=== PATIENT | male | born 1970 | race Two or more races ===

== ENCOUNTER 2020-05-19 13:21 | Inpatient (IN) | payer MEDICAID, OTHER ==
[~2020-05-19] VITALS: Ht 172.7 cm; Wt 77.5 kg
[2020-05-19 14:04] LABS: Basophils # (auto) 0 10 ^3/uL (0-0.2); Basophils % (auto) 0.2 % (0.0-2.0); Eosinophils # (auto) 0 10 ^3/uL (0-0.8); Eosinophils % (auto) 0.1 % (0.0-7.0); Hematocrit 42.3 % (41.0-53.0); Lymphocytes # (auto) 0.7 10 ^3/uL (0.4-5.4); Lymphocytes % (auto) 9.6 % (10.0-50.0); Mean Corpuscular Hemoglobin 33.7 pg (28.0-32.0); Mean Corpuscular Hgb Conc. 35.4 g/dL (32.0-36.0); Mean Corpuscular Volume 95.2 fL (80.0-100.0); Monocytes # (auto) 0.2 10 ^3/uL (0-1.3); Monocytes % (auto) 2.6 % (0.0-12.0); Neutrophils # (auto) 6.1 10 ^3/uL (1.6-8.6); Neutrophils % (auto) 87.5 % (37.0-80.0); Nucleated Red Blood Cells % 0.1 %; Platelet Count (auto) 258 10^3/uL (140-450); Red Blood Cells 4.44 10^6/uL (4.5-5.90); Red Cell Distribution Width 12.5 % (11.8-14.3); White Blood Cell 6.9 10^3/uL (4.4-10.8)
[2020-05-19 14:13] LABS: Albumin 2.8 g/dL (3.4-5.0); BUN/Creatinine Ratio 15.2; Calcium 8.1 mg/dL (8.5-10.1); Potassium 3.6 mmol/L (3.5-5.1)
[2020-05-19 14:18] LABS: Bilirubin, Total 0.7 mg/dL (0.2-1.0); Total Protein 7.4 g/dL (6.4-8.2)
[2020-05-19] MEDS ORDERED: AZITHROMYCIN 500MG/ 250ML 250 ML IV ONE (14:45)
[2020-05-19 15:02] LABS: INR 1.05 (0.9-1.15); Partial Thromboplastin Time 26.7 sec (23.0-31.2)
[2020-05-19] MEDS ORDERED: DexAMETHasone 4 MG TAB PO ONE (16:45)
[2020-05-19] MEDS ORDERED: REMDESIVIR PER PHARMACY 0 ML IV SCH (19:00)
[2020-05-19] MEDS ORDERED: NITROGLYCERIN 0.4 MG SL TAB SL PRN (19:00)
[2020-05-19] MEDS ORDERED: ACETAMINOPHEN 500 MG TAB PO PRN (19:00)
[2020-05-19] MEDS ORDERED: MORPHINE SULF INJ 2 MG/ML SYRINGE 1ML IV PRN ×2 (19:00)
[2020-05-19] MEDS ORDERED: ONDANSETRON HCL 4 MG/2 ML VIAL IV PRN (19:00)
[2020-05-19] MEDS ORDERED: HYDROcodone-ACET 5/325MG TAB PO PRN (19:00)
[2020-05-19 21:24] LABS: CRP High Sensitivity 12.9 mg/dL (< 0.3)
[2020-05-19] MEDS: ENOXAPARIN SOD 40 MG/0.4 ML SYRINGE SC SCH (22:00)
[2020-05-20] VITALS (7 sets, daily range): BP systolic 120–128; BP diastolic 65–82
[2020-05-20 07:14] LABS: BUN/Creatinine Ratio 17.9; Basophils # (auto) 0 10 ^3/uL (0-0.2); Calcium 8.7 mg/dL (8.5-10.1); Eosinophils # (auto) 0 10 ^3/uL (0-0.8); Hematocrit 42.2 % (41.0-53.0); Hemoglobin 14.6 g/dL (13.5-17.5); Lymphocytes # (auto) 0.4 10 ^3/uL (0.4-5.4); Mean Corpuscular Hemoglobin 33.4 pg (28.0-32.0); Mean Corpuscular Hgb Conc. 34.6 g/dL (32.0-36.0); Mean Corpuscular Volume 96.5 fL (80.0-100.0); Monocytes # (auto) 0.1 10 ^3/uL (0-1.3); Monocytes % (auto) 3.5 % (0.0-12.0); Neutrophils # (auto) 2.5 10 ^3/uL (1.6-8.6); Neutrophils % (auto) 84.5 % (37.0-80.0); Nucleated Red Blood Cells % 0.1 %; Platelet Count (auto) 248 10^3/uL (140-450); Red Blood Cells 4.38 10^6/uL (4.5-5.90); Red Cell Distribution Width 12.6 % (11.8-14.3); White Blood Cell 2.9 10^3/uL (4.4-10.8)
[2020-05-20] MEDS: AZITHROMYCIN 500MG/ 250ML 250 ML IV SCH (09:33)
[2020-05-20] MEDS: ZINC SULFATE 220mg CAP or TAB PO SCH (09:33)
[2020-05-20] MEDS: DexAMETHasone SOD PHOS 10MG/1ML VIAL INJ IV SCH (09:33)
[2020-05-20] MEDS: cefTRIAXone 1GM/50ML D5W 50 ML IV SCH (09:33)
[2020-05-20] MEDS: FAMOTIDINE 20 MG TAB PO SCH (09:34)
[2020-05-20] MEDS: ASCORBIC ACID 1,000 MG TAB PO SCH (09:34)
[2020-05-20] MEDS: ENOXAPARIN SOD 40 MG/0.4 ML SYRINGE SC SCH ×2 (09:35→22:01)
[2020-05-20] MEDS: CHOLECALCIFEROL (VITD3) 2,000 UNIT CAP PO SCH (09:35)
[2020-05-20] MEDS: BUDESONIDE (INHALATION) 180 MCG IH IN SCH ×3 (10:00→23:06)
[2020-05-20] MEDS ORDERED: REMDESIVIR 200 MG in NS 210ml LOADING DOSE ADULT IV ONE (15:00)
[2020-05-20 16:36] LABS: Urine Bacteria NONE SEEN /hpf (None Seen); Urine Blood Negative /uL (Negative); Urine Mucus FEW (None Seen); Urine Specific Gravity 1.027 (1.001-1.035); Urine WBC 1 /hpf (0 - 3)
[2020-05-20] MEDS: PROMETHAZINE W/CODEINE 5 ML ORAL SYRUP PO PRN ×2 (16:36→22:30)
[2020-05-21 05:00] VITALS: BP 120/78
[2020-05-21] MEDS: PROMETHAZINE W/CODEINE 5 ML ORAL SYRUP PO PRN ×3 (06:19→18:58)
[2020-05-21 08:53] VITALS: BP 116/74
[2020-05-21 09:29] LABS: Calcium 8.5 mg/dL (8.5-10.1); Potassium 3.7 mmol/L (3.5-5.1)
[2020-05-21] MEDS: cefTRIAXone 1GM/50ML D5W 50 ML IV SCH (09:34)
[2020-05-21 09:35] LABS: Albumin 2.3 g/dL (3.4-5.0); Bilirubin, Total 0.4 mg/dL (0.2-1.0)
[2020-05-21] MEDS: ENOXAPARIN SOD 40 MG/0.4 ML SYRINGE SC SCH ×2 (09:41→22:08)
[2020-05-21] MEDS: DexAMETHasone SOD PHOS 10MG/1ML VIAL INJ IV SCH (09:42)
[2020-05-21] MEDS: ZINC SULFATE 220mg CAP or TAB PO SCH (09:49)
[2020-05-21] MEDS: FAMOTIDINE 20 MG TAB PO SCH (09:50)
[2020-05-21] MEDS: ASCORBIC ACID 1,000 MG TAB PO SCH (09:50)
[2020-05-21] MEDS: CHOLECALCIFEROL (VITD3) 2,000 UNIT CAP PO SCH (09:51)
[2020-05-21] MEDS: BUDESONIDE (INHALATION) 180 MCG IH IN SCH ×2 (10:00→20:57)
[2020-05-21] MEDS: AZITHROMYCIN 500MG/ 250ML 250 ML IV SCH (10:00)
[2020-05-21 12:51] VITALS: BP 115/69
[2020-05-21] MEDS: REMDESIVIR 100 MG in SODIUM CHL 0.9% 250 ML IV SCH (15:00)
[2020-05-21 17:13] VITALS: BP 114/74
[2020-05-21 22:00] VITALS: BP 125/75
[2020-05-21] MEDS: ALBUTEROL SULF HFA 90MCG INH 200DOSE IN PRN (22:35)
[2020-05-22 05:00] VITALS: BP 123/73
[2020-05-22] MEDS: BUDESONIDE (INHALATION) 180 MCG IH IN SCH ×2 (07:05→20:39)
[2020-05-22 09:00] VITALS: BP 96/58
[2020-05-22] MEDS: AZITHROMYCIN 500MG/ 250ML 250 ML IV SCH (09:56)
[2020-05-22] MEDS: cefTRIAXone 1GM/50ML D5W 50 ML IV SCH (09:57)
[2020-05-22] MEDS: ZINC SULFATE 220mg CAP or TAB PO SCH (09:58)
[2020-05-22] MEDS: ASCORBIC ACID 1,000 MG TAB PO SCH (09:59)
[2020-05-22] MEDS: FAMOTIDINE 20 MG TAB PO SCH (09:59)
[2020-05-22] MEDS: CHOLECALCIFEROL (VITD3) 2,000 UNIT CAP PO SCH (09:59)
[2020-05-22] MEDS: DexAMETHasone SOD PHOS 10MG/1ML VIAL INJ IV SCH (11:54)
[2020-05-22] MEDS: ENOXAPARIN SOD 40 MG/0.4 ML SYRINGE SC SCH ×2 (11:54→21:10)
[2020-05-22 13:04] VITALS: BP 120/70
[2020-05-22 13:11] LABS: Potassium 3.9 mmol/L (3.5-5.1)
[2020-05-22 13:19] LABS: Albumin 2.3 g/dL (3.4-5.0); Bilirubin, Total 0.4 mg/dL (0.2-1.0); Calcium 8.4 mg/dL (8.5-10.1); Total Protein 6.5 g/dL (6.4-8.2)
[2020-05-22] MEDS: REMDESIVIR 100 MG in SODIUM CHL 0.9% 250 ML IV SCH (16:04)
[2020-05-22 17:08] VITALS: BP 127/76
[2020-05-22] MEDS ORDERED: POTASSIUM CHL 20 Meq TABLET PO ONE (17:30)
[2020-05-22] MEDS ORDERED: FUROSEMIDE 20 MG/2 ML VIAL IV ONE (17:30)
[2020-05-22] MEDS: ALBUTEROL SULF HFA 90MCG INH 200DOSE IN PRN (20:39)
[2020-05-22 22:00] VITALS: BP 107/69
[2020-05-23] VITALS (11 sets, daily range): BP systolic 106–128; BP diastolic 65–78
[2020-05-23] MEDS: ALBUTEROL SULF HFA 90MCG INH 200DOSE IN PRN (07:05)
[2020-05-23 07:36] LABS: Albumin 2.5 g/dL (3.4-5.0); Calcium 8.8 mg/dL (8.5-10.1)
[2020-05-23 07:40] LABS: BUN/Creatinine Ratio 27.9; Bilirubin, Total 0.5 mg/dL (0.2-1.0); Potassium 4.3 mmol/L (3.5-5.1); Total Protein 6.5 g/dL (6.4-8.2)
[2020-05-23] MEDS: cefTRIAXone 1GM/50ML D5W 50 ML IV SCH (09:24)
[2020-05-23] MEDS: FUROSEMIDE 20 MG/2 ML VIAL IV SCH (09:25)
[2020-05-23] MEDS: ASCORBIC ACID 1,000 MG TAB PO SCH (09:25)
[2020-05-23] MEDS: DexAMETHasone SOD PHOS 10MG/1ML VIAL INJ IV SCH (09:25)
[2020-05-23] MEDS: ZINC SULFATE 220mg CAP or TAB PO SCH (09:25)
[2020-05-23] MEDS: POTASSIUM CHL 20 Meq TABLET PO SCH (09:25)
[2020-05-23] MEDS: FAMOTIDINE 20 MG TAB PO SCH (09:25)
[2020-05-23] MEDS: CHOLECALCIFEROL (VITD3) 2,000 UNIT CAP PO SCH (09:25)
[2020-05-23] MEDS: ENOXAPARIN SOD 40 MG/0.4 ML SYRINGE SC SCH ×2 (09:26→21:58)
[2020-05-23] MEDS: AZITHROMYCIN 500MG/ 250ML 250 ML IV SCH (09:35)
[2020-05-23] MEDS: REMDESIVIR 100 MG in SODIUM CHL 0.9% 250 ML IV SCH (15:45)
[2020-05-23] MEDS: BUDESONIDE (INHALATION) 180 MCG IH IN SCH ×2 (19:10→19:15)
[2020-05-24] VITALS (7 sets, daily range): BP systolic 104–127; BP diastolic 61–85
[2020-05-24] MEDS: PROMETHAZINE W/CODEINE 5 ML ORAL SYRUP PO PRN (01:36)
[2020-05-24] MEDS: ALBUTEROL SULF HFA 90MCG INH 200DOSE IN PRN ×2 (02:21→20:51)
[2020-05-24 07:06] LABS: Potassium 4.3 mmol/L (3.5-5.1)
[2020-05-24 07:16] LABS: Albumin 2.4 g/dL (3.4-5.0); BUN/Creatinine Ratio 24.7; Bilirubin, Total 0.4 mg/dL (0.2-1.0); Calcium 8.4 mg/dL (8.5-10.1); Total Protein 6.5 g/dL (6.4-8.2)
[2020-05-24] MEDS: cefTRIAXone 1GM/50ML D5W 50 ML IV SCH (08:57)
[2020-05-24] MEDS: AZITHROMYCIN 500MG/ 250ML 250 ML IV SCH (09:47)
[2020-05-24] MEDS: POTASSIUM CHL 20 Meq TABLET PO SCH (09:47)
[2020-05-24] MEDS: ASCORBIC ACID 1,000 MG TAB PO SCH (09:47)
[2020-05-24] MEDS: FUROSEMIDE 20 MG/2 ML VIAL IV SCH (09:48)
[2020-05-24] MEDS: DexAMETHasone SOD PHOS 10MG/1ML VIAL INJ IV SCH (09:48)
[2020-05-24] MEDS: ENOXAPARIN SOD 40 MG/0.4 ML SYRINGE SC SCH ×2 (09:48→21:18)
[2020-05-24] MEDS: FAMOTIDINE 20 MG TAB PO SCH (09:49)
[2020-05-24] MEDS: CHOLECALCIFEROL (VITD3) 2,000 UNIT CAP PO SCH (09:49)
[2020-05-24] MEDS: ZINC SULFATE 220mg CAP or TAB PO SCH (09:51)
[2020-05-24] MEDS: BUDESONIDE (INHALATION) 180 MCG IH IN SCH ×2 (10:00→20:51)
[2020-05-24] MEDS: REMDESIVIR 100 MG in SODIUM CHL 0.9% 250 ML IV SCH (15:39)
[2020-05-24] MEDS ORDERED: SALINE 0.65 % NASAL SPRAY 45ML BOTTLE EACHNOSTRI ONE (16:00)
[2020-05-24] MEDS: Ensure HIGH Protein Chocolate 8oz Bottle PO SCH (17:50)
[2020-05-25 05:30] VITALS: BP 114/74
[2020-05-25] MEDS: SALINE 0.65 % NASAL SPRAY 45ML BOTTLE EACHNOSTRI SCH ×4 (06:12→21:42)
[2020-05-25 07:58] LABS: Basophils # (auto) 0 10 ^3/uL (0-0.2); Basophils % (auto) 0.2 % (0.0-2.0); Eosinophils # (auto) 0 10 ^3/uL (0-0.8); Hemoglobin 14.5 g/dL (13.5-17.5); Lymphocytes # (auto) 0.8 10 ^3/uL (0.4-5.4); Lymphocytes % (auto) 11.2 % (10.0-50.0); Mean Corpuscular Hemoglobin 33.6 pg (28.0-32.0); Mean Corpuscular Hgb Conc. 34.5 g/dL (32.0-36.0); Mean Corpuscular Volume 97.5 fL (80.0-100.0); Monocytes # (auto) 0.3 10 ^3/uL (0-1.3); Monocytes % (auto) 4.6 % (0.0-12.0); Neutrophils # (auto) 5.8 10 ^3/uL (1.6-8.6); Platelet Count (auto) 379 10^3/uL (140-450); Red Blood Cells 4.31 10^6/uL (4.5-5.90); Red Cell Distribution Width 12.8 % (11.8-14.3); White Blood Cell 6.9 10^3/uL (4.4-10.8)
[2020-05-25] MEDS: Ensure HIGH Protein Chocolate 8oz Bottle PO SCH ×3 (08:04→18:16)
[2020-05-25 08:11] LABS: Potassium 4.3 mmol/L (3.5-5.1)
[2020-05-25 08:17] LABS: BUN/Creatinine Ratio 34.3; Calcium 8.7 mg/dL (8.5-10.1)
[2020-05-25] MEDS: cefTRIAXone 1GM/50ML D5W 50 ML IV SCH (08:58)
[2020-05-25 09:00] VITALS: BP 107/76
[2020-05-25] MEDS: FAMOTIDINE 20 MG TAB PO SCH (09:36)
[2020-05-25] MEDS: POTASSIUM CHL 20 Meq TABLET PO SCH ×2 (09:36→21:42)
[2020-05-25] MEDS: ASCORBIC ACID 1,000 MG TAB PO SCH (09:37)
[2020-05-25] MEDS: CHOLECALCIFEROL (VITD3) 2,000 UNIT CAP PO SCH (09:37)
[2020-05-25] MEDS: ZINC SULFATE 220mg CAP or TAB PO SCH (09:37)
[2020-05-25] MEDS: ENOXAPARIN SOD 40 MG/0.4 ML SYRINGE SC SCH ×2 (09:37→21:42)
[2020-05-25] MEDS: AZITHROMYCIN 500MG/ 250ML 250 ML IV SCH (09:37)
[2020-05-25] MEDS: DexAMETHasone SOD PHOS 10MG/1ML VIAL INJ IV SCH (09:37)
[2020-05-25] MEDS ORDERED: FUROSEMIDE 40 MG/4 ML VIAL IV SCH (10:00)
[2020-05-25 12:46] VITALS: BP 110/68
[2020-05-25 16:43] VITALS: BP 107/72
[2020-05-25] MEDS: BUDESONIDE (INHALATION) 180 MCG IH IN SCH ×2 (19:10→21:42)
[2020-05-25] MEDS: FUROSEMIDE 40 MG/4 ML VIAL IV SCH (21:42)
[2020-05-26] MEDS: ALBUTEROL SULF HFA 90MCG INH 200DOSE IN PRN ×3 (01:32→19:47)
[2020-05-26] MEDS: SALINE 0.65 % NASAL SPRAY 45ML BOTTLE EACHNOSTRI SCH ×4 (05:14→21:08)
[2020-05-26 05:16] VITALS: BP 101/73
[2020-05-26] MEDS: BUDESONIDE (INHALATION) 180 MCG IH IN SCH ×2 (07:33→19:15)
[2020-05-26 07:42] LABS: Potassium 4.3 mmol/L (3.5-5.1)
[2020-05-26 07:53] LABS: BUN/Creatinine Ratio 35.7
[2020-05-26] MEDS: Ensure HIGH Protein Chocolate 8oz Bottle PO SCH ×3 (08:00→18:00)
[2020-05-26 09:00] VITALS: BP 111/70
[2020-05-26] MEDS: cefTRIAXone 1GM/50ML D5W 50 ML IV SCH (09:35)
[2020-05-26] MEDS: ENOXAPARIN SOD 40 MG/0.4 ML SYRINGE SC SCH ×2 (09:36→21:08)
[2020-05-26] MEDS: DexAMETHasone SOD PHOS 10MG/1ML VIAL INJ IV SCH (09:36)
[2020-05-26] MEDS: FUROSEMIDE 40 MG/4 ML VIAL IV SCH ×2 (09:36→21:32)
[2020-05-26] MEDS: ASCORBIC ACID 1,000 MG TAB PO SCH (09:37)
[2020-05-26] MEDS: POTASSIUM CHL 20 Meq TABLET PO SCH ×2 (09:37→21:08)
[2020-05-26] MEDS: ZINC SULFATE 220mg CAP or TAB PO SCH (09:37)
[2020-05-26] MEDS: CHOLECALCIFEROL (VITD3) 2,000 UNIT CAP PO SCH (09:38)
[2020-05-26] MEDS: FAMOTIDINE 20 MG TAB PO SCH (09:38)
[2020-05-26] MEDS: AZITHROMYCIN 500MG/ 250ML 250 ML IV SCH (10:30)
[2020-05-26 16:00] VITALS: BP 117/76
[2020-05-26] MEDS: DexAMETHasone SOD PHOS 4 MG/1ML SDV INJ IV SCH (21:11)
[2020-05-27] VITALS: BP 116/75
[2020-05-27 05:21] VITALS: BP 117/76
[2020-05-27] MEDS: SALINE 0.65 % NASAL SPRAY 45ML BOTTLE EACHNOSTRI SCH ×4 (05:22→21:45)
[2020-05-27 08:00] VITALS: BP 112/70
[2020-05-27] MEDS: Ensure HIGH Protein Chocolate 8oz Bottle PO SCH ×3 (08:30→17:35)
[2020-05-27] MEDS: cefTRIAXone 1GM/50ML D5W 50 ML IV SCH (08:35)
[2020-05-27] MEDS: DexAMETHasone SOD PHOS 4 MG/1ML SDV INJ IV SCH ×2 (08:35→21:45)
[2020-05-27] MEDS: FUROSEMIDE 40 MG/4 ML VIAL IV SCH ×2 (08:36→21:47)
[2020-05-27] MEDS: ZINC SULFATE 220mg CAP or TAB PO SCH (08:36)
[2020-05-27] MEDS: POTASSIUM CHL 20 Meq TABLET PO SCH ×2 (08:37→21:45)
[2020-05-27] MEDS: ASCORBIC ACID 1,000 MG TAB PO SCH (08:37)
[2020-05-27] MEDS: CHOLECALCIFEROL (VITD3) 2,000 UNIT CAP PO SCH (08:37)
[2020-05-27] MEDS: ENOXAPARIN SOD 40 MG/0.4 ML SYRINGE SC SCH ×2 (08:38→21:46)
[2020-05-27] MEDS: FAMOTIDINE 20 MG TAB PO SCH (08:38)
[2020-05-27] MEDS: ALBUTEROL SULF HFA 90MCG INH 200DOSE IN PRN (09:52)
[2020-05-27] MEDS: BUDESONIDE (INHALATION) 180 MCG IH IN SCH ×2 (09:52→22:21)
[2020-05-27] MEDS: AZITHROMYCIN 500MG/ 250ML 250 ML IV SCH (10:19)
[2020-05-27 16:00] VITALS: BP 112/64
[2020-05-27 22:00] VITALS: BP 126/81
[2020-05-28] MEDS: SALINE 0.65 % NASAL SPRAY 45ML BOTTLE EACHNOSTRI SCH ×4 (05:41→22:00)
[2020-05-28 06:56] LABS: Basophils # (auto) 0 10 ^3/uL (0-0.2); Basophils % (auto) 0.1 % (0.0-2.0); Eosinophils # (auto) 0 10 ^3/uL (0-0.8); Hematocrit 43.2 % (41.0-53.0); Hemoglobin 15.2 g/dL (13.5-17.5); Lymphocytes # (auto) 0.5 10 ^3/uL (0.4-5.4); Lymphocytes % (auto) 6.1 % (10.0-50.0); Mean Corpuscular Hgb Conc. 35.1 g/dL (32.0-36.0); Mean Corpuscular Volume 96.8 fL (80.0-100.0); Monocytes # (auto) 0.2 10 ^3/uL (0-1.3); Monocytes % (auto) 2.4 % (0.0-12.0); Neutrophils # (auto) 8.1 10 ^3/uL (1.6-8.6); Neutrophils % (auto) 91.4 % (37.0-80.0); Platelet Count (auto) 403 10^3/uL (140-450); Red Blood Cells 4.46 10^6/uL (4.5-5.90); Red Cell Distribution Width 12.6 % (11.8-14.3); White Blood Cell 8.9 10^3/uL (4.4-10.8)
[2020-05-28 07:01] LABS: Potassium 4.7 mmol/L (3.5-5.1)
[2020-05-28 07:12] LABS: BUN/Creatinine Ratio 37.9
[2020-05-28 08:00] VITALS: BP 115/77
[2020-05-28] MEDS: Ensure HIGH Protein Chocolate 8oz Bottle PO SCH ×3 (08:00→18:05)
[2020-05-28] MEDS: cefTRIAXone 1GM/50ML D5W 50 ML IV SCH (09:00)
[2020-05-28] MEDS: CHOLECALCIFEROL (VITD3) 2,000 UNIT CAP PO SCH (10:00)
[2020-05-28] MEDS: BUDESONIDE (INHALATION) 180 MCG IH IN SCH ×2 (10:00→22:39)
[2020-05-28] MEDS: AZITHROMYCIN 500MG/ 250ML 250 ML IV SCH (10:00)
[2020-05-28] MEDS: FAMOTIDINE 20 MG TAB PO SCH (10:00)
[2020-05-28] MEDS: POTASSIUM CHL 20 Meq TABLET PO SCH ×2 (10:00→22:10)
[2020-05-28] MEDS: DexAMETHasone SOD PHOS 4 MG/1ML SDV INJ IV SCH ×2 (10:00→22:08)
[2020-05-28] MEDS: FUROSEMIDE 40 MG/4 ML VIAL IV SCH ×2 (10:00→22:09)
[2020-05-28] MEDS: ZINC SULFATE 220mg CAP or TAB PO SCH (10:00)
[2020-05-28] MEDS: ENOXAPARIN SOD 40 MG/0.4 ML SYRINGE SC SCH ×2 (10:00→22:10)
[2020-05-28] MEDS: ASCORBIC ACID 1,000 MG TAB PO SCH (10:00)
[2020-05-28 16:00] VITALS: BP 127/77
[2020-05-28 22:00] VITALS: BP 112/73
[2020-05-29] MEDS: SALINE 0.65 % NASAL SPRAY 45ML BOTTLE EACHNOSTRI SCH ×4 (06:00→22:03)
[2020-05-29 08:00] VITALS: BP 113/75
[2020-05-29] MEDS: Ensure HIGH Protein Chocolate 8oz Bottle PO SCH ×3 (08:00→18:03)
[2020-05-29 08:02] VITALS: BP 119/66
[2020-05-29] MEDS: BUDESONIDE (INHALATION) 180 MCG IH IN SCH ×2 (10:00→21:05)
[2020-05-29] MEDS: DexAMETHasone SOD PHOS 4 MG/1ML SDV INJ IV SCH ×2 (10:06→22:03)
[2020-05-29] MEDS: cefTRIAXone 1GM/50ML D5W 50 ML IV SCH (10:06)
[2020-05-29] MEDS: ZINC SULFATE 220mg CAP or TAB PO SCH (10:07)
[2020-05-29] MEDS: CHOLECALCIFEROL (VITD3) 2,000 UNIT CAP PO SCH (10:07)
[2020-05-29] MEDS: ASCORBIC ACID 1,000 MG TAB PO SCH (10:07)
[2020-05-29] MEDS: POTASSIUM CHL 20 Meq TABLET PO SCH ×2 (10:07→22:03)
[2020-05-29] MEDS: FAMOTIDINE 20 MG TAB PO SCH (10:07)
[2020-05-29] MEDS: AZITHROMYCIN 500MG/ 250ML 250 ML IV SCH (10:07)
[2020-05-29] MEDS: FUROSEMIDE 40 MG/4 ML VIAL IV SCH ×2 (10:08→22:03)
[2020-05-29] MEDS: ENOXAPARIN SOD 40 MG/0.4 ML SYRINGE SC SCH ×2 (10:08→22:03)
[2020-05-29 16:00] VITALS: BP 115/73
[2020-05-29] MEDS: PROMETHAZINE W/CODEINE 5 ML ORAL SYRUP PO PRN (20:01)
[2020-05-30 00:25] VITALS: BP 110/72
[2020-05-30 00:39] VITALS: BP 110/72
[2020-05-30] MEDS ORDERED: SODIUM CHLORIDE 0.9% 1,000 ML IV SCH (04:45)
[2020-05-30] MEDS: BUDESONIDE (INHALATION) 180 MCG IH IN SCH ×2 (07:20→19:31)
[2020-05-30] MEDS: ALBUTEROL SULF HFA 90MCG INH 200DOSE IN PRN ×2 (07:21→19:31)
[2020-05-30 08:00] VITALS: BP 114/68
[2020-05-30] MEDS: Ensure HIGH Protein Chocolate 8oz Bottle PO SCH ×3 (08:00→18:00)
[2020-05-30] MEDS: PROMETHAZINE W/CODEINE 5 ML ORAL SYRUP PO PRN (08:20)
[2020-05-30] MEDS: DexAMETHasone SOD PHOS 4 MG/1ML SDV INJ IV SCH ×2 (10:11→22:08)
[2020-05-30] MEDS: cefTRIAXone 1GM/50ML D5W 50 ML IV SCH (10:11)
[2020-05-30] MEDS: ZINC SULFATE 220mg CAP or TAB PO SCH (10:12)
[2020-05-30] MEDS: POTASSIUM CHL 20 Meq TABLET PO SCH ×2 (10:12→22:08)
[2020-05-30] MEDS: AZITHROMYCIN 500MG/ 250ML 250 ML IV SCH (10:12)
[2020-05-30] MEDS: FUROSEMIDE 40 MG/4 ML VIAL IV SCH ×2 (10:12→22:00)
[2020-05-30] MEDS: ASCORBIC ACID 1,000 MG TAB PO SCH (10:12)
[2020-05-30] MEDS: FAMOTIDINE 20 MG TAB PO SCH (10:12)
[2020-05-30] MEDS: CHOLECALCIFEROL (VITD3) 2,000 UNIT CAP PO SCH (10:13)
[2020-05-30] MEDS: ENOXAPARIN SOD 40 MG/0.4 ML SYRINGE SC SCH ×2 (10:13→22:08)
[2020-05-30] MEDS: SALINE 0.65 % NASAL SPRAY 45ML BOTTLE EACHNOSTRI SCH ×3 (12:00→22:08)
[2020-05-30 16:00] VITALS: BP 122/71
[2020-05-31] VITALS: BP 134/75
[2020-05-31] MEDS: SALINE 0.65 % NASAL SPRAY 45ML BOTTLE EACHNOSTRI SCH ×4 (06:00→21:47)
[2020-05-31 08:00] VITALS: BP 113/70
[2020-05-31 08:51] VITALS: BP 113/70
[2020-05-31] MEDS: Ensure HIGH Protein Chocolate 8oz Bottle PO SCH ×3 (08:52→18:31)
[2020-05-31] MEDS: CHOLECALCIFEROL (VITD3) 2,000 UNIT CAP PO SCH (09:31)
[2020-05-31] MEDS: ASCORBIC ACID 1,000 MG TAB PO SCH (09:31)
[2020-05-31] MEDS: ENOXAPARIN SOD 40 MG/0.4 ML SYRINGE SC SCH ×2 (09:31→21:46)
[2020-05-31] MEDS: FAMOTIDINE 20 MG TAB PO SCH (09:31)
[2020-05-31] MEDS: cefTRIAXone 1GM/50ML D5W 50 ML IV SCH (09:32)
[2020-05-31] MEDS: AZITHROMYCIN 500MG/ 250ML 250 ML IV SCH (09:32)
[2020-05-31] MEDS: DexAMETHasone SOD PHOS 4 MG/1ML SDV INJ IV SCH ×2 (09:32→21:46)
[2020-05-31] MEDS: POTASSIUM CHL 20 Meq TABLET PO SCH (09:32)
[2020-05-31] MEDS: ZINC SULFATE 220mg CAP or TAB PO SCH (09:32)
[2020-05-31] MEDS: FUROSEMIDE 40 MG/4 ML VIAL IV SCH (09:33)
[2020-05-31] MEDS: BUDESONIDE (INHALATION) 180 MCG IH IN SCH ×2 (12:07→18:50)
[2020-05-31 16:00] VITALS: BP 133/79
[2020-05-31 17:00] VITALS: BP 133/79
[2020-06-01] VITALS: BP 115/64
[2020-06-01] MEDS: SALINE 0.65 % NASAL SPRAY 45ML BOTTLE EACHNOSTRI SCH ×4 (06:10→22:21)
[2020-06-01] MEDS ORDERED: FUROSEMIDE 20 MG/2 ML VIAL IV SCH (07:00)
[2020-06-01 08:00] VITALS: BP 116/69
[2020-06-01] MEDS: Ensure HIGH Protein Chocolate 8oz Bottle PO SCH ×3 (08:00→17:50)
[2020-06-01] MEDS: BUDESONIDE (INHALATION) 180 MCG IH IN SCH ×2 (08:19→19:53)
[2020-06-01] MEDS: ALBUTEROL SULF HFA 90MCG INH 200DOSE IN PRN ×2 (08:19→19:54)
[2020-06-01] MEDS: cefTRIAXone 1GM/50ML D5W 50 ML IV SCH (09:56)
[2020-06-01] MEDS: ZINC SULFATE 220mg CAP or TAB PO SCH (09:57)
[2020-06-01] MEDS: DexAMETHasone SOD PHOS 4 MG/1ML SDV INJ IV SCH (09:57)
[2020-06-01] MEDS: AZITHROMYCIN 250 MG TAB PO SCH (09:58)
[2020-06-01] MEDS: CHOLECALCIFEROL (VITD3) 2,000 UNIT CAP PO SCH (09:58)
[2020-06-01] MEDS: POTASSIUM CHL 20 Meq TABLET PO SCH (09:58)
[2020-06-01] MEDS: ENOXAPARIN SOD 40 MG/0.4 ML SYRINGE SC SCH ×2 (09:58→22:21)
[2020-06-01] MEDS: FAMOTIDINE 20 MG TAB PO SCH (09:58)
[2020-06-01] MEDS: ASCORBIC ACID 1,000 MG TAB PO SCH (09:58)
[2020-06-01] MEDS: PROMETHAZINE W/CODEINE 5 ML ORAL SYRUP PO PRN ×2 (09:59→18:00)
[2020-06-01 16:00] VITALS: BP 110/67
[2020-06-02] VITALS: BP 128/74
[2020-06-02] MEDS: SALINE 0.65 % NASAL SPRAY 45ML BOTTLE EACHNOSTRI SCH (06:00)
[2020-06-02] MEDS: BUDESONIDE (INHALATION) 180 MCG IH IN SCH (07:37)
[2020-06-02] MEDS: ALBUTEROL SULF HFA 90MCG INH 200DOSE IN PRN (07:37)
[2020-06-02 08:00] VITALS: BP_SYST 110; BP_SYST 120; BP_DIAS 67; BP_DIAS 74
[2020-06-02] MEDS ORDERED: DexAMETHasone 4 MG TAB PO SCH (10:00)
[2020-06-02] MEDS ORDERED: FUROSEMIDE 20 MG TAB PO SCH (10:00)
[2020-06-02] MEDS: ASCORBIC ACID 1,000 MG TAB PO SCH (10:21)
[2020-06-02] MEDS: FAMOTIDINE 20 MG TAB PO SCH (10:21)
[2020-06-02] MEDS: AZITHROMYCIN 250 MG TAB PO SCH (10:22)
[2020-06-02] MEDS: POTASSIUM CHL 20 Meq TABLET PO SCH (10:23)
[2020-06-02] MEDS: CHOLECALCIFEROL (VITD3) 2,000 UNIT CAP PO SCH (10:23)
[2020-06-02] MEDS: Ensure HIGH Protein Chocolate 8oz Bottle PO SCH ×2 (10:23→18:54)
[2020-06-02] MEDS: ZINC SULFATE 220mg CAP or TAB PO SCH (10:23)
[2020-06-02] MEDS: ENOXAPARIN SOD 40 MG/0.4 ML SYRINGE SC SCH (10:24)
[2020-06-02 16:00] VITALS: BP 107/62
[2020-06-02 17:11] VITALS: BP 110/67
== END 2020-06-02 18:00 | disposition home or self-care (01) | DRG 720 ==
LOC: ER 13:21 → TELE-CENTR 13:22 → TELE 05-20 00:53 → TELE-WESTW 05-20 03:10
PROVIDERS: ADMIT Nurse Practitioner Acute Care; ATTEND Internal Medicine
PROC: XW033E5 Introduction of Remdesivir Anti-infective into Peripheral Vein, Percutaneous Approach, New Technology Group 5 (ICD-10-PCS; 2020-05-20)
PROC: XW13325 Transfusion of Convalescent Plasma (Nonautologous) into Peripheral Vein, Percutaneous Approach, New Technology Group 5 (ICD-10-PCS; principal; 2020-05-23)
PROC: 5A09357 Assistance with Respiratory Ventilation, Less than 24 Consecutive Hours, Continuous Positive Airway Pressure (ICD-10-PCS; 2020-05-29)
DX: A41.89 Other specified sepsis (principal); U07.1 COVID-19; J96.01 Acute respiratory failure with hypoxia; E44.0 Moderate protein-calorie malnutrition; N17.9 Acute kidney failure, unspecified; D68.59 Other primary thrombophilia; J12.89 Other viral pneumonia; D72.810 Lymphocytopenia; R79.89 Other specified abnormal findings of blood chemistry; F17.210 Nicotine dependence, cigarettes, uncomplicated; Z79.82 Long term (current) use of aspirin
CPT/HCPCS: 36415; 36600; 71045; 80048; 80053; 81001; 82306; 82728; 82805; 83605; 83615; 83735; 84443; 85025; 85379; 85610; 85730; 86141; 86850; 86900; 86901; 87040; 87426; 87804; 93005; 94640; 96365; 96372; G0378; J0696; J1100

== ENCOUNTER 2021-11-26 08:06 | Emergency (ER) | payer SELFPAY ==
[~2021-11-26] VITALS: Ht 172.7 cm; Wt 81.6 kg
[2021-11-26 08:29] VITALS: BP 147/73
[2021-11-26] MEDS ORDERED: IBUP800T27 PO (09:37)
[2021-11-26] MEDS ORDERED: METH750T22 PO (09:37)
[2021-11-26] MEDS ORDERED: KETOROLAC TROMETH 60MG/2ML VIAL IM ONE (09:45)
== END 2021-11-26 10:04 | disposition home or self-care (01) ==
LOC: ER 08:06
DX: M54.41 Lumbago with sciatica, right side (principal); F17.210 Nicotine dependence, cigarettes, uncomplicated
CPT/HCPCS: 96372; 99283; J1885